=== PATIENT | female | born 1995 | race African-American/Black ===

== ENCOUNTER 2019-10-21 05:41 | Day surgery (SDC) | payer OTHER ==
[2019-10-21 06:30] VITALS: BP 119/64; TEMP 98.7; BMI 30.5
[2019-10-21] MEDS ORDERED: hydrALAZINE 20 MG/ML VIAL SLOW IVP PRN (07:56)
--- NOTE | 2019-10-21 08:02 | PDOC.FPROB ---
FMR OB H&P: HPI - History of Present Illness Chief Complaint: Contractions, leaking of fluid Indentification: 24 y/o at 40.2 wks History of Present Illness: 24 y/o at 40.2 wks presents with contractions q4-5 min since this evening. They subsided once she arrived to L&D. She also describes a "bloody show" and possible leaking of fluid which she noted on her pad. Patient endorses good movement. Primary Care Physician: Dr. Nunn FMR OB H&P: Current - Care : 1 Para: 0 Gestational age: 40.2 wks Due date: 10/19/2019 - OB Labs Blood type: A RH: positive Antibody Screen: negative HIV: negative RPR: negative HepBsAg: negative FMR OB H&P: History - Past Medical History PMH: Denies any significant PMH - OB History OB History: G1 - [employer] History [employer] History: Hx chlamydia s/p neg JUAN - Surgical History Sx History: Denies - Social History Social History: Hx THC use in . Denies alcohol or tobacco use. FMR OB H&P: Medications - Current Home Medications: Medication Instructions Recorded Confirmed Type No Known 10/21/19 10/21/19 History Allergies/Adverse Reactions: Allergies Allergy/AdvReac Type Severity Reaction Status Date / Time Penicillins Allergy Verified 10/21/19 06:31 FMR OB H&P: ROS - Review of Systems General: denies: fever/chills, weight/appetite/sleep changes Eyes: denies: vision changes, double vision ENT: denies: nasal congestion, rhinorrhea, sore throat Cardiovascular: denies: chest pain, palpitation, edema Respiratory: denies: cough, congestion, shortness of breath Gastrointestinal: reports: abdominal pain. denies: nausea, vomiting Genitourinary (Female): reports: vaginal discharge, vaginal bleeding, contractions. denies: dysuria Musculoskeletal: denies: pain, stiffness Neurologic: denies: numbness, syncope Integumentary: denies: itching, rash Hematologic/Lymphatic: denies: prolonged or excessive bleeding Psychological: denies: depression, anxiety FMR OB H&P: Vital Signs - Maternal Vital signs: Vital Signs - First Documented Temp Pulse Resp BP Pulse Ox 98.7 F 93 14 119/64 99 10/21/19 06:11 10/21/19 06:11 10/21/19 06:11 10/21/19 06:11 10/21/19 06:11 - Heart Tones Baseline: 140 Variability: moderate Acceleration: present Deceleration: absent (Reactive strip) [place] contractions every: q5-7 min FMR OB H&P: Physical Exam - Physical Exam General: NAD, awake, alert and oriented HEENT: MMM, grossly normal vision, grossly normal hearing Heart: RRR, pulses present, no edema General: no respiratory distress, no retractions Abdomen: soft, gravid Musculoskeletal: pulses present, FROM in all four extremities Neurological: no tremor, no focal deficit Skin: no rash, capillary refill <2 seconds Lymphatic: no unusual bruising or bleeding Psychiatric: intact recent and remote memory, good judgement and insight, normal mood and affect - Pelvic Exam SVE: 1/thick/high FMR OB H&P: A/P - Problem List (1) Term Status: Acute Code(s): Z34.90 - ENCNTR FOR SUPRVSN OF NORMAL , UNSP, UNSP TRIMESTER Disposition: 24 y/o at 40.2 wks presents with contractions TIUP - Appears comfortable with contractions, q5-7 min - Reactive strip - 1/thick/high, which is unchanged from exam several days ago - Does not appear to be in active labor at this time - Sterile speculum exam performed. Cervix visualized. Minimal amount of blood at os. No active bleeding. Brown/white vaginal discharge. No pooling of fluid, no LoF with coughing - Did not perform aminsure d/t bleeding and risk for false positive - Labor precautions provided Dispo: D/c home with labor precautions. Discussion: Date/Time: 10/21/19 0757 This H&P was discussed with Dr. Riley who agrees with the above documentation and plan. Signature: Yessica Wade, PGY-3
== END 2019-10-21 08:03 | disposition home or self-care (01) ==
LOC: L&D/OP 05:41
PROVIDERS: ATTEND Obstetrics & Gynecology
DX: O47.1 False labor at or after 37 completed weeks of gestation (principal); O99.89 Other specified diseases and conditions complicating pregnancy, childbirth and the puerperium; N89.8 Other specified noninflammatory disorders of vagina; O48.0 Post-term pregnancy; Z3A.40 40 weeks gestation of pregnancy; Z88.0 Allergy status to penicillin

== ENCOUNTER 2019-10-21 19:26 | Inpatient (IN) | payer OTHER ==
[~2019-10-21 19:26] MED LIST: Lidocaine 2% MPF 10 ML AMP (For Epidural Use) ONE
[2019-10-21] MEDS ORDERED: hydrALAZINE 20 MG/ML VIAL SLOW IVP PRN (20:07)
--- NOTE | 2019-10-21 20:09 | PDOC.BPN ---
- Brief Progress Note S: H&P reviewed from visit this morning with no changes. Patient has continued to have painful contractions q5 mins and has had some mucus discharge. Denies heavy VB, LOF, or other concerns. +FM. ROS neg for HEENT, CV, pulm, GI, , neuro, psych, skin, musculoskeletal, or constitutional symptoms other than mentioned above. O: AFVSS Gen - AAO, NAD Abd - gravid, NTTP Ext - no edema SVE - 2/50/-2 EFM: 130s mod variability, + accels, no decels Rand: ctx q 5 mins A/P: Patient with small cervical change since exam this morning but unchanged after 2 hours in triage but patient with continued painful ctx. Will obs for pain control and recheck in the am.
[2019-10-21] MEDS ORDERED: Lactated Ringer's 1,000 ML IV SCH (22:00)
[2019-10-21] MEDS ORDERED: Meperidine HCl/PF 25 MG/ML VIAL SLOW IVP SCH (22:15)
[2019-10-21] MEDS ORDERED: Promethazine HCl 12.5 MG in Sodium Chloride 0.9% 50 ML IVPB SCH (22:30)
[2019-10-22 05:36] VITALS: BMI 29.5
[2019-10-22] MEDS: Lactated Ringer's 1,000 ML IV SCH ×4 (07:25→17:57)
[2019-10-22] MEDS ORDERED: Misoprostol 200 MCG TAB PR PRN (07:30)
[2019-10-22] MEDS ORDERED: Lidocaine 1% (PF) 30 ML VIAL SC PRN (07:30)
[2019-10-22] MEDS ORDERED: Ibuprofen 800 MG TAB PO PRN (07:30)
[2019-10-22] MEDS ORDERED: Butorphanol Tartrate 1 MG/ML VIAL SLOW IVP PRN (07:30)
[2019-10-22] MEDS ORDERED: hydrALAZINE 20 MG/ML VIAL SLOW IVP PRN ×2 (07:30→20:19)
[2019-10-22] MEDS ORDERED: NS w/ Oxytocin 10 units 500 ML IV SCH (07:30)
[2019-10-22] MEDS ORDERED: Acetaminophen 500 MG TAB PO PRN (07:30)
[2019-10-22] MEDS ORDERED: Promethazine HCl 25 MG/ML VIAL IM PRN ×3 (07:30→19:55)
[2019-10-22] MEDS ORDERED: NS / Oxytocin 40 units/1000ml 1,000 ML IV PRN (07:30)
[2019-10-22] MEDS ORDERED: Ondansetron PF 4 MG/2 ML Vial IVP PRN ×3 (07:30→19:55)
[2019-10-22] MEDS ORDERED: Butorphanol Tartrate 1 MG/ML VIAL ONE (08:01)
[2019-10-22 08:13] LABS: Hemoglobin 12.7 g/dL (12.0-16.0); Mean Corpuscular HGB CONC 32.4 g/dL (32.0-36.0); Mean Corpuscular Hemoglobin 27.5 pg (27.0-31.0); Mean Corpuscular Volume 84.9 fL (78.0-98.0); Mean Platelet Volume 9.9 fL (7.4-10.4); Platelet Count 173 thou/uL (130-400); RBC Distribution Width 14.5 % (11.5-14.5)
[2019-10-22 08:45] LABS: Syphilis Antibody Nonreactive (Nonreactive); Syphilis Antibody Index 0.07 S/CO (<1.00 Non-Reactive)
[2019-10-22 08:46] LABS: HBSAg Index 0.22 S/CO (0-0.99); Hep B Surf Ag Non-Reactive S/CO (NonReactive)
--- NOTE | 2019-10-22 10:54 | PDOC.LDPN ---
Labor & Delivery Progress Note - Subjective Subjective: painful contractions, other (Still has not chosen epidural, states she is tired) - Objective Vital signs reviewed and normal: yes General: NAD Uterine fundus: non tender SVE: Moralez at bedside just now Dilation: 6 Effacement: 100% Station: 0 FHT: category 1 [place] contractions every: irregular...IUPC and FSE placed by me, pre-pitocin augmentation Other exam findings: Slight bloody show at perineum IUPC placed: yes (Placed) FSE placed: yes (Placed) - Assessment (1) Term Code(s): Z34.90 - ENCNTR FOR SUPRVSN OF NORMAL , UNSP, UNSP TRIMESTER Current Visit: No Status: Acute Comment: Late term, 40 weeks, AROM at 0730...just entering ACTIVE phase. Dr weber in main OR, so I was asked to evaluate the patient and start pitocin. Plan: continue plan of care, labor augmentation (Oxytocin ordered by me now. Plan discussed with the patient and her partner at bedside.), pitocin for augmentation
[2019-10-22] MEDS ORDERED: Fentanyl 4 mcg/Bup 0.1% Cadd 100 ML ONE (12:38)
[2019-10-22] MEDS ORDERED: Fentanyl 100 MCG/2 ML VIAL ONE ×3 (13:02→20:26)
[2019-10-22] MEDS ORDERED: ePHEDrine/0.9% NaCl/PF SYRINGE 50 mg/10 ml SLOW IVP PRN (13:35)
[2019-10-22] MEDS ORDERED: Acetaminophen 325 MG TAB PO PRN (13:35)
[2019-10-22] MEDS ORDERED: Lactated Ringer's 500 ML IV PRN (13:35)
[2019-10-22] MEDS ORDERED: Naloxone HCl 0.4 mg/ml Vial IVP PRN ×4 (13:35→19:55)
[2019-10-22] MEDS ORDERED: diphenhydrAMINE 50 MG/ML VIAL IVP PRN ×2 (13:35→19:55)
[2019-10-22] MEDS ORDERED: Fentanyl 4 mcg/Bupivacaine 0.1% Cassette 100 ML EPIDURAL SCH (13:45)
[2019-10-22] MEDS ORDERED: Communication Order-Pharmacy FS SCH ×2 (13:45→20:00)
[2019-10-22] MEDS: NS w/ Oxytocin 10 units 500 ML IV SCH (15:35)
--- NOTE | 2019-10-22 19:03 | PDOC.EVN ---
Event Note - Event Note Event Note: PREOP NOTE See dictation
[2019-10-22] MEDS ORDERED: Lidocaine 2% 10 ML INJ ONE (19:13)
[2019-10-22] MEDS ORDERED: metroNIDAZOLE 500 MG in Premix Bag 1 BAG IVPB SCH (19:15)
[2019-10-22] MEDS ORDERED: Gentamicin 120 MG/100 ML BAG IVPB SCH (19:15)
[2019-10-22] MEDS ORDERED: Azithromycin 500 MG in Sodium Chloride 0.9% 250 ML 250 ML IVPB SCH (19:15)
[2019-10-22] MEDS ORDERED: Azithromycin 500 MG VIAL ONE (19:27)
--- NOTE | 2019-10-22 19:28 | PRG ---
DATE OF SERVICE: 10/22/2019 PREOP : TIME OF EVALUATION: Roughly 1850 hours. Time is now 1900 hours. LOCATION: R2. This is a patient of Dr. Nunn, who has asked that we assumed care for this intervention. In brief, this is a G1, P0, who I have evaluated along with Dr. Nunn throughout the day. Her last cervical exam about 30 minutes ago was 6 cm dilated, about 90% to 100% effaced, and -1 station. The patient was first called 6 cm at 10:40 this morning. Pitocin was started at 1330 hours. Also of concern is that the patient's fetus has had persistent deep variables and although now with every contraction, they have persisted despite an attempt at amnioinfusion. They have also persisted despite adjustments in the Pitocin administration. Due to the deep variables, nonresponsive to amnioinfusion, the fact of no cervical change in close to 6 hours (per ACOG) despite oxytocin use, I have explained to the patient and her family at bedside that the plan of care will now entail a primary . Risks and benefits were addressed with the patient. Opportunity for questions was asked. The patient understood indication for . I have also discussed the case with Anesthesia, and they are aware. The patient has a labor epidural and anesthesia is preparing for operative availability. I have requested the OB resident on-call to assist with a as Dr. Nunn has requested that we intervene at this time on her behalf as she is currently unavailable. Job ID: [id number]
[2019-10-22] MEDS ORDERED: MORPHINE 5 MG/10 ML PF VIAL ONE (19:33)
[2019-10-22] MEDS ORDERED: Oxytocin 10 UNITS/ML VIAL ONE (19:34)
[2019-10-22] MEDS ORDERED: Dexamethasone 4 mg/ml Vial ONE (19:34)
[2019-10-22] MEDS ORDERED: Ketorolac Tromethamine 30 MG/ML VIAL ONE ×2 (19:34→21:58)
[2019-10-22] MEDS ORDERED: Ondansetron PF 4 MG/2 ML Vial ONE (19:34)
[2019-10-22] MEDS ORDERED: HYDROmorphone 2 MG/ML VIAL SLOW IVP PRN (19:55)
[2019-10-22] MEDS ORDERED: Ondansetron HCl/PF 4 MG/2 ML Vial IVP PRN (19:55)
[2019-10-22] MEDS ORDERED: Meperidine HCl/PF 25 MG/ML VIAL SLOW IVP PRN (19:55)
[2019-10-22] MEDS ORDERED: Promethazine HCl 25 MG SUPP PR PRN (19:55)
[2019-10-22] MEDS ORDERED: L&D-Morphine 4 MG/ML VIAL SLOW IVP PRN (19:55)
[2019-10-22] MEDS ORDERED: Naloxone HCl 0.4 mg/ml Vial IV PRN (19:55)
[2019-10-22] MEDS ORDERED: Ketorolac Tromethamine 30 MG/ML VIAL IVP SCH (20:00)
[2019-10-22] MEDS ORDERED: Midazolam HCl 2 mg/2 ml Vial ONE (20:12)
[2019-10-22] MEDS ORDERED: Measles/Mumps/Rubella 10 MCG/0.5 ML VIAL SC ONE (20:19)
[2019-10-22] MEDS ORDERED: Acetaminophen/Codeine 30-300mg Tablet PO PRN (20:19)
[2019-10-22] MEDS ORDERED: Adacel (T-DAP) 0.5 ML SYRINGE IM ONE (20:19)
[2019-10-22] MEDS ORDERED: Lanolin Ointment 7 GM TUBE TOP PRN (20:19)
[2019-10-22] MEDS ORDERED: Varicella virus, LIVE 0.5 ML VIAL SC ONE (20:19)
[2019-10-22] MEDS ORDERED: Simethicone Chewable 80 MG TAB PO PRN (20:19)
--- NOTE | 2019-10-22 20:49 | OP ---
DATE OF PROCEDURE: 10/22/2019 TIME OF INTERVENTION: Roughly 1930 hours. LOCATION: OR in Labor and Delivery A. PREOPERATIVE DIAGNOSES: 1. A primigravida with failure to dilate at 6 cm. 2. intolerance of labor (persistent category II) due to recurrent deep variables despite amnioinfusion. 3. Meconium-stained amniotic fluid. POSTPROCEDURE DIAGNOSES: 1. A primigravida with failure to dilate at 6 cm. 2. intolerance of labor (persistent category II) due to recurrent deep variables despite amnioinfusion. 3. Meconium-stained amniotic fluid. PROCEDURE PERFORMED: Primary low transverse section via Pfannenstiel skin incision. ASSISTANTS: 1. Mariaa Noe MD. 2. Dr. Jesse Katz (M3). ANESTHESIA: Labor epidural. ANTIBIOTICS: Zithromax 500 mg and gentamicin, which is to be given after the Zithromax infuses (Flagyl to be given in the recovery room). FINDINGS: 1. There is a hypo-wound umbilical cord. 2. Slight meconium staining of the amniotic membrane. 3. Baby in a cephalic presentation. 4. Nuchal cord x1. 5. Baby vigorous at . 6. NICU Team present. 7. Normal tubes and ovaries bilaterally. 8. Hemostasis post repair. IV FLUIDS: About 1 L of crystalloid. URINE OUTPUT: About 100 mL by Whitney. ESTIMATED BLOOD LOSS: About 700 mL. COUNTS: Correct. COMPLICATIONS: None. PATHOLOGY: Placenta. Laboratory specimen sent and umbilical arterial gas were attempted, but due to the hypo-wound cord and scantity of blood in the cord segment, the cord blood gas was not able to be collected. DESCRIPTION OF PROCEDURE: After discussing with the patient the indication for in the Labor and Delivery room, she was transported to the OR, where she was successfully dosed of her labor epidural anesthetic. The patient's abdomen was prepped and draped in the usual sterile fashion and antibiotic prophylaxis was given in agreement with ACOG guidelines. A Pfannenstiel skin incision was made after the abdomen was prepped and draped. Bovie cautery on cut mode was used to dissect the subcutaneous tissue down to the level of the fascia. The fascia was identified, cleaned off any overlying fat, and entered with sharp dissection in a transverse fashion. Care was taken to avoid underlying structures. Rectus muscles were off the fascia both superiorly and inferiorly in the midline with Canas scissors. Rectus muscles were out laterally and the underlying peritoneum was entered by blunt dissection via finger dissection. An Te O retractor was placed into the wound for atraumatic retraction. A low transverse hysterotomy was made in the lower uterine segment without dissection of the bladder flap. Cephalocaudal dissection was then done bluntly and the baby was noted to be in a vertex presentation. The baby's head was delivered without incident and a nuchal cord was reduced. Shoulders and the remainder of the body were delivered in the usual manner. A 30-second delayed cord clamp was allowed and then the cord was clamped and transected and the baby was handed to the NICU Team. The baby was vigorous. The baby's scores were initially reported to be 8 and 9. The placenta was gently massaged out of the uterine cavity and it was intact. Three-vessel cord was noted. The umbilical cord was noted to be attached at the margin of the placenta. After the uterine cavity was evacuated of all membranes, uterus was closed in two layers using #1 Monocryl in the usual running locking fashion for the internal layer and running nonlocking for the second layer. Copious irrigation was then performed and after confirming that all counts were correct, The parietal peritoneum and rectus muscles were reapproximated in the midline using 2-0 plain gut suture. Then the fascia was closed with 0 PDS x2 in a running nonlocking fashion with two sutures. These were tied in the midline. Subcutaneous tissue was then copiously irrigated and as it was less than 2 cm, it was not closed independently. Skin was closed with a subcuticular stitch of 3-0 Monocryl. All counts were correct and there was no complications noted with the procedure. She was sent to recovery for routine recovery. Job ID: [id number]
[2019-10-22] MEDS ORDERED: Meperidine HCl/PF 25 MG/ML VIAL ONE (21:15)
[2019-10-22] MEDS: Ketorolac Tromethamine 30 MG/ML VIAL IVP PRN (21:59)
[2019-10-22] MEDS ORDERED: Ibuprofen 800 MG TAB PO SCH (22:00)
[2019-10-23] MEDS: Ketorolac Tromethamine 30 MG/ML VIAL IVP PRN (04:45)
[2019-10-23] MEDS: Lactated Ringer's 1,000 ML IV SCH (04:53)
[2019-10-23 06:09] LABS: Hemoglobin 9.2 g/dL (12.0-16.0); Mean Corpuscular HGB CONC 32.1 g/dL (32.0-36.0); Mean Corpuscular Hemoglobin 27.2 pg (27.0-31.0); Mean Corpuscular Volume 84.9 fL (78.0-98.0); Mean Platelet Volume 9.6 fL (7.4-10.4); Platelet Count 148 thou/uL (130-400); RBC Distribution Width 14.2 % (11.5-14.5); Red Blood Cell (RBC) Count 3.37 mill/uL (4.20-5.40); White Blood Cell (WBC) Count 20.9 thou/uL (4.8-10.8)
--- NOTE | 2019-10-23 07:09 | PDOC.PP ---
Post Progress Note Post Day #: 1 Subjective: NAEO. Patient tolerating liquids PO & reports pain is much better controlled now. Not yet ambulating or passing flatus. Denies excessive vaginal bleeding, lightheadedness, nausea, SOB or leg pain/swelling. Would like to try & is interested in consult. PO intake tolerated: yes Flatus: yes Ambulation: no Vital Signs (12 hours) Temp Pulse Resp BP Pulse Ox 10/23/19 04:40 98.1 F 84 18 118/57 L 96 10/23/19 01:35 98.4 F 84 18 110/57 L 10/23/19 00:20 98.6 F 88 18 121/59 L 10/22/19 23:05 99.1 F 80 18 100/70 96 Weight Weight 75.75 kg - Physical Examination General: NAD Cardiovascular: no m/r/g, RRR Respiratory: clear to auscultation bilaterally, non-labored breathing Abdominal: + bowel sounds, lochia, no distention, appropriately TTP (w/ fundus firm & palpated just at the umbilicus) Extremities: negative homans (B) Skin: CS incision dry & intact, no rash Neurological: no gross focal deficits Psychiatric: A&Ox3, normal affect Result Diagrams: 10/23/19 05:45 Additional Labs: Post Labs Blood Type A POSITIVE 10/22/19 07:54 Hep Bs Antigen Non-Reactive S/CO (NonReactive) 10/22/19 07:54 (1) Acute blood loss anemia Code(s): D62 - ACUTE POSTHEMORRHAGIC ANEMIA Status: Acute (2) Post-op pain Code(s): G89.18 - OTHER ACUTE POSTPROCEDURAL PAIN Status: Acute (3) Delivery by section of full-term Code(s): O82 - ENCOUNTER FOR DELIVERY WITHOUT INDICATION Status: Acute (4) hemorrhage Code(s): O72.1 - OTHER IMMEDIATE HEMORRHAGE Status: Acute - Assessment/Plan 24YO G1 now P1 who is post-op day #1 s/p primary LTCS for persistent category 2 strip w/ deep variables, failure to progress at 6cm, & meconuim stained amniotic fluid. PP day #1 s/p primary LTCS: Tolerating PO but not yet voiding or ambulating. Pain well-controlled. Desires breast feeding so consult placed since patient is first time mom. Will d/c IV pain meds & continue PRN T3 w/ MIKAELA ibuprofen. Otherwise, continue routine PP care. PP hemorrhage: QBL of 1057mL since delivery but patient's vitals remain WNLs & she is asymptomatic. H/H down to 9.2/28.6 from 12.7/39 on admission so above transfusion limits at this point. Will continue to monitor vitals & I&Os closely & transfuse PRN. Acute blood loss anemia: See plan above for PPH but will continue PNVs & also start BID PO iron. Post-op pain: Well controlled this AM after 1 dose of IV toradol. Will continue MIKAELA PO motrin and PRN T3. Dispo: Anticipate likely discharge later tomorrow or pending mom and 's clinical course.
--- NOTE | 2019-10-23 07:50 | PDOC.EVN ---
Event Note - Event Note Event Note: 10/23/19 0750: Patient seen at bedside: POD 0 to 1. Agree with Dr flor (Resident note) Continue routine postop care HCT 29 Incision sutured and DB in use
[2019-10-23] MEDS: Prenatal Vitamin 1 TAB PO SCH (09:53)
[2019-10-23] MEDS: Acetaminophen/Codeine 30-300mg Tablet PO PRN ×3 (09:54→20:44)
[2019-10-23] MEDS: NS w/ Oxytocin 10 units 500 ML IV SCH (11:05)
[2019-10-23] MEDS: Ibuprofen 800 MG TAB PO SCH ×2 (13:41→21:38)
[2019-10-23] MEDS: Ferrous Sulfate 325 MG TAB PO SCH (17:29)
[2019-10-24] MEDS: Ibuprofen 800 MG TAB PO SCH ×3 (05:50→21:42)
--- NOTE | 2019-10-24 08:12 | PDOC.PP ---
Post Progress Note Post Day #: 2 Subjective: Working better on . PO intake tolerated: yes Flatus: yes Ambulation: yes Vital Signs (12 hours) Temp Pulse Resp BP 10/24/19 04:25 98.4 F 101 H 18 111/55 L 10/23/19 23:49 98.3 F 84 18 107/53 L Weight Weight 167 lb Result Diagrams: 10/23/19 05:45 Additional Labs: Post Labs Blood Type A POSITIVE 10/22/19 07:54 Hep Bs Antigen Non-Reactive S/CO (NonReactive) 10/22/19 07:54 - Assessment/Plan Post op day 2 from primary c/s . Discharge in AM...
[2019-10-24] MEDS: Prenatal Vitamin 1 TAB PO SCH (11:08)
[2019-10-24] MEDS: Ferrous Sulfate 325 MG TAB PO SCH ×2 (11:09→17:10)
[2019-10-24] MEDS: NS w/ Oxytocin 10 units 500 ML IV SCH (11:34)
[2019-10-24] MEDS: Acetaminophen/Codeine 30-300mg Tablet PO PRN (14:17)
[2019-10-25] MEDS: Ibuprofen 800 MG TAB PO SCH (05:50)
[2019-10-25] MEDS: Acetaminophen/Codeine 30-300mg Tablet PO PRN (05:51)
--- NOTE | 2019-10-25 07:58 | PDOC.PP ---
Post Progress Note Post Day #: 3 PO intake tolerated: yes Flatus: yes Ambulation: yes Weight Weight 167 lb Result Diagrams: 10/23/19 05:45 Additional Labs: Post Labs Blood Type A POSITIVE 10/22/19 07:54 Hep Bs Antigen Non-Reactive S/CO (NonReactive) 10/22/19 07:54 - Assessment/Plan Doing well. Ready for discharge. F/u in 6 weeks.
[2019-10-25 08:26] VITALS: BP 105/57; TEMP 98.3
[2019-10-25] MEDS: Prenatal Vitamin 1 TAB PO SCH (09:20)
[2019-10-25] MEDS: Ferrous Sulfate 325 MG TAB PO SCH (09:21)
== END 2019-10-25 14:25 | disposition home or self-care (01) | DRG 787 ==
LOC: L&D/OP 19:26 → L&D 22:28 → 3SW 10-22 23:24
PROVIDERS: ADMIT Obstetrics & Gynecology; ATTEND Obstetrics & Gynecology
PROC: 10D00Z1 Extraction of Products of Conception, Low, Open Approach (ICD-10-PCS; principal; 2019-10-22)
PROC: 3E0E7GC Introduction of Other Therapeutic Substance into Products of Conception, Via Natural or Artificial Opening (ICD-10-PCS; 2019-10-22)
PROC: 10907ZC Drainage of Amniotic Fluid, Therapeutic from Products of Conception, Via Natural or Artificial Opening (ICD-10-PCS; 2019-10-22)
PROC: 3E0P7VZ Introduction of Hormone into Female Reproductive, Via Natural or Artificial Opening (ICD-10-PCS; 2019-10-22)
PROC: 3E033VJ Introduction of Other Hormone into Peripheral Vein, Percutaneous Approach (ICD-10-PCS; 2019-10-22)
DX: O69.81X0 Labor and delivery complicated by cord around neck, without compression, not applicable or unspecified (principal); D62 Acute posthemorrhagic anemia; O72.1 Other immediate postpartum hemorrhage; O62.0 Primary inadequate contractions; O76 Abnormality in fetal heart rate and rhythm complicating labor and delivery; O77.0 Labor and delivery complicated by meconium in amniotic fluid; O61.0 Failed medical induction of labor; O67.9 Intrapartum hemorrhage, unspecified; O90.81 Anemia of the puerperium; Z3A.40 40 weeks gestation of pregnancy; Z37.0 Single live birth
CPT/HCPCS: 36415; 51702; 85027; 86780; 86850; 86900; 86901; 87340; 88307; 99283; 99285; J0456; J0595; J0690; J1100; J1580; J1885; J2001; J2175; J2250; J2274; J2405; J2550; J2590; J3010

== ENCOUNTER 2022-06-23 17:17 | Emergency (ER) | payer MEDICAID, OTHER, SELFPAY | END 2022-06-23 19:11 | disposition home or self-care (01) | LOC: ERS 17:17 | DX: S90.32XA Contusion of left foot, initial encounter (principal); W22.8XXA Striking against or struck by other objects, initial encounter ==